=== PATIENT | male | born 1980 | race Caucasian/White ===

== ENCOUNTER 2021-02-16 19:19 | Emergency (ER) | payer OTHER ==
[~2021-02-16] VITALS: Ht 172.7 cm; Wt 70.3 kg
[~2021-02-16 19:19] MED LIST: PROM25 PO
== END 2021-02-16 20:07 | disposition home or self-care (01) ==
LOC: ER 19:19
DX: S01.01XA Laceration without foreign body of scalp, initial encounter (principal); F17.200 Nicotine dependence, unspecified, uncomplicated; W22.8XXA Striking against or struck by other objects, initial encounter
CPT/HCPCS: 12002; 90471; 90714; 99282-25

== ENCOUNTER → 2021-05-14 | Outpatient (CLI) | payer OTHER | END | disposition home or self-care (01) | LOC: LAB SHORT 10:53 → LAB 10:53 | DX: R35.0 Frequency of micturition (principal) | CPT/HCPCS: 87086 ==